=== PATIENT | female | born 1970 | race Hispanic/Latino ===

== ENCOUNTER 2019-04-20 11:02 | Emergency (ER) | payer BC ==
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
== END 2019-04-20 13:39 | disposition home or self-care (01) ==
LOC: ERS 11:02
DX: S16.1XXA Strain of muscle, fascia and tendon at neck level, initial encounter (principal); S60.012A Contusion of left thumb without damage to nail, initial encounter; S60.022A Contusion of left index finger without damage to nail, initial encounter; V43.52XA Car driver injured in collision with other type car in traffic accident, initial encounter
CPT/HCPCS: 72125

== ENCOUNTER 2019-05-16 15:22 | Outpatient (CLI) | payer BC ==
--- NOTE | 2019-05-16 15:42 | RAD ---
EXAM: 3 views of the left hand COMPARISON: 04/20/2019 HISTORY: Hand pain FINDINGS: 3 views of the left hand shows no evidence of acute fracture or dislocation. No degenerativ e changes are seen. No soft tissue swelling is present. IMPRESSION: Unremarkable exam.
== END 2019-05-16 15:23 | disposition home or self-care (01) ==
LOC: BICRAD 15:22
PROVIDERS: ATTEND Physician Assistant Medical
DX: M79.645 Pain in left finger(s) (principal)

== ENCOUNTER 2019-09-14 15:44 | Outpatient (CLI) | payer BC ==
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
== END 2019-09-14 15:45 | disposition home or self-care (01) ==
LOC: BICRAD 15:44
PROVIDERS: ATTEND Family Medicine
DX: M25.511 Pain in right shoulder (principal)